=== PATIENT | female | born 1945 | race Caucasian/White ===

== ENCOUNTER 2019-03-26 09:49 | Observation (INO) | payer OTHER ==
[2019-03-26 10:42] LABS: BASOPHILS % (AUTO) 1 % (0-3); EOSINOPHILS % (AUTO) 1 % (0-9); HEMATOCRIT 40 % (35-47); HEMOGLOBIN 13.3 gm/dl (12.0-15.5); LYMPHOCYTES % (AUTO) 24.1 % (10-50); MEAN CORPUSCULAR HEMOGLOBIN 30.5 pg (27.0-32.0); MEAN CORPUSCULAR HGB CONC 33.5 gm/dl (32.0-36.0); MEAN CORPUSCULAR VOLUME 91 fL (81-99); MONOCYTES % (AUTO) 11.4 % (0-12); NEUTROPHILS % (AUTO) 62.4 % (37-80)
[2019-03-26 11:03] LABS: BILIRUBIN,TOTAL 0.9 mg/dl (0.2-1.0); CALCIUM 9.6 mg/dl (8.5-10.1); CARBON DIOXIDE 31.7 mEq/L (21-32); CREATININE 0.78 mg/dl (0.60-1.00); MAGNESIUM 1.8 mg/dl (1.8-2.4); POTASSIUM 4.1 mMol/L (3.5-5.1); THYROID STIMULATING HORMONE 2.061 uIU/ml (0.358-3.740); TOTAL PROTEIN 7.6 gm/dl (6.4-8.2)
[2019-03-26] MEDS ORDERED: SODIUM CHLORIDE 0.9% 1000ML 1,000 ML IV ONE (11:34)
[2019-03-26] MEDS: SODIUM CHLORIDE 0.9% FLUSH 10 ML SOL IV SCH ×2 (14:38→20:14)
[2019-03-26 18:13] LABS: CALCIUM 8.7 mg/dl (8.5-10.1); CARBON DIOXIDE 29.8 mEq/L (21-32); CREATININE 0.69 mg/dl (0.60-1.00); POTASSIUM 3.9 mMol/L (3.5-5.1)
[2019-03-26] MEDS: CYCLOSPORINE EACHEYE SCH (20:14)
[2019-03-27] MEDS: SODIUM CHLORIDE 0.9% FLUSH 10 ML SOL IV SCH (03:58)
[2019-03-27 05:47] VITALS: RESP 16
[2019-03-27 07:15] LABS: CALCIUM 8.4 mg/dl (8.5-10.1); CARBON DIOXIDE 30.1 mEq/L (21-32); CREATININE 0.72 mg/dl (0.60-1.00); POTASSIUM 4.3 mMol/L (3.5-5.1)
[2019-03-27 07:23] LABS: BASOPHILS % (AUTO) 2 % (0-3); EOSINOPHILS % (AUTO) 1 % (0-9); HEMATOCRIT 37 % (35-47); HEMOGLOBIN 12.3 gm/dl (12.0-15.5); LYMPHOCYTES % (AUTO) 33.5 % (10-50); MEAN CORPUSCULAR HEMOGLOBIN 30.4 pg (27.0-32.0); MEAN CORPUSCULAR VOLUME 92 fL (81-99); MONOCYTES % (AUTO) 11.8 % (0-12); NEUTROPHILS % (AUTO) 51.7 % (37-80)
[2019-03-27 08:04] VITALS: BP 150/74; PULSE 68; TEMP 97.9
[2019-03-27] MEDS ORDERED: PANTOPRAZOLE SODIUM 40 MG/10 ML PDS IV SCH (09:00)
[2019-03-27] MEDS ORDERED: LEVOTHYROXINE SODIUM 50 MCG TAB PO SCH (09:00)
[2019-03-27] MEDS ORDERED: FISH OIL 500 MG CAP PO SCH (09:00)
[2019-03-27] MEDS ORDERED: LISINOPRIL 5 MG TAB PO SCH (09:00)
[2019-03-27] MEDS ORDERED: ENOXAPARIN 40 MG SOL SC SCH (09:00)
[2019-03-27 09:49] VITALS: O2SAT 94
[2019-03-27] MEDS: CYCLOSPORINE EACHEYE SCH (10:43)
== END 2019-03-27 09:50 | disposition home or self-care (01) | DRG 309 ==
LOC: ED 09:49 → ACUTE CARE 12:21 → UNDOADMOB 12:21 → ACUTE CARE 12:30
PROVIDERS: ADMIT Internal Medicine; ATTEND Internal Medicine
DX: R00.2 Palpitations (principal); E87.1 Hypo-osmolality and hyponatremia; R06.09 Other forms of dyspnea; R42 Dizziness and giddiness; R19.7 Diarrhea, unspecified; E87.8 Other disorders of electrolyte and fluid balance, not elsewhere classified; R06.02 Shortness of breath; E03.9 Hypothyroidism, unspecified
CPT/HCPCS: 36415; 71046; 80048; 80053; 83735; 84443; 85025; 93005; 93012; 96365; 99219; 99285; J1650; A9270-GY